=== PATIENT | female | born 1985 | race African-American/Black ===

== ENCOUNTER 2017-03-30 18:11 | Emergency (ER) | payer SELFPAY ==
[~2017-03-30] VITALS: Ht 157.5 cm; Wt 48.3 kg
[~2017-03-30 18:11] MED LIST: BACTRIM,SEPT1 TABLET PO; BENTYL20 MG PO; K-DUR20 MEQ PO; NAPROSYN500 MG PO; NO HOME MEDS; PRILOSEC40 MG PO; PROMETHAZINE HC25 M1 PO; TRAMADOL HCL50 MG PO; ZOFRAN ODT4 MG PO; ZOFRAN4 MG PO
[2017-03-30 19:09] LABS: HEMOGLOBIN 17.2 G/DL (11.9-15.5); MCH 33.1 PG (29.0-34.0); MCHC 35.1 G/DL (30.0-36.0); MCV 94.2 FL (83-99); PLATELET COUNT 443 K/uL (156-360); RBC DIS.WIDTH-CV 12.4 % (11.8-14.6); RBC DIS.WIDTH-SD 43.2 % (39-53); WHITE BLOOD COUNT 16.6 K/uL (4.1-10.2)
[2017-03-30 19:14] LABS: ALBUMIN 5.4 g/dL (3.2-4.8); CHLORIDE 95 mEq/L (99-109); POTASSIUM 3.4 mEq/L (3.7-5.4); SODIUM 136 mEq/L (136-147)
[2017-03-30 19:16] LABS: GLUCOSE 111 mg/dL (70-99); TOTAL PROTEIN 10.3 g/dL (6.4-8.3)
[2017-03-30 19:18] LABS: TOTAL BILIRUBIN 0.6 mg/dL (0.0-1.0)
[2017-03-30 19:20] LABS: ALKALINE PHOSPHATASE 77 IU/L (3-129); CREATININE 1.3 mg/dL (0.6-1.3); GFR ESTIMATE (CALCULATED) > 59 mL/min/
[2017-03-30 19:21] LABS: UREA NITROGEN (BUN) 17 mg/dL (9-23)
[2017-03-30 19:22] LABS: AST (GOT) 34 IU/L (2-34)
[2017-03-30 19:23] LABS: ALT (GPT) 29 IU/L (3-49)
[2017-03-30 19:32] LABS: QUANTITATIVE HCG < 4.0 MIU/ML
[2017-03-30 21:07] LABS: APPEARANCE CLOUDY ((CLEAR)); BILIRUBIN MODERATE; BLOOD NEGATIVE; COLOR AMBER ((YELLOW)); GLUCOSE (STRIP) 50; KETONES 5; LEUKOCYTES SMALL; NITRITE NEGATIVE; PROTEIN (STRIP) >=500; SPECIFIC GRAVITY 1.041 (1.000-1.030)
[2017-03-30 21:38] LABS: ICTOTEST POSITIVE
[2017-03-30 22:01] LABS: EPITHELIAL CELLS 3+ /HPF; HYALINE CASTS TNTC /LPF; MUCUS 2+ /LPF
[2017-03-30 22:02] LABS: RED BLOOD CELLS NONE SEEN /HPF (0-5); WHITE BLOOD CELLS 20-30 /HPF (0-5)
[2017-03-30 22:03] LABS: BACTERIA RARE /HPF; UCUL ADDED? YES
[2017-03-30] MEDS ORDERED: ZOFRAN ODT4 MG PO (22:14)
[2017-03-30 22:30] VITALS: BP 122/76
== END 2017-03-30 22:32 | disposition home or self-care (01) ==
LOC: EME 18:11
DX: R11.2 Nausea with vomiting, unspecified (principal); F17.200 Nicotine dependence, unspecified, uncomplicated
CPT/HCPCS: 80053; 81003; 84702; 85027; 87086; 99281; 99285; J2405; J7030

== ENCOUNTER 2017-09-14 12:41 | Emergency (ER) | payer SELFPAY ==
[~2017-09-14] VITALS: Ht 157.5 cm; Wt 55.7 kg
[2017-09-14 12:50] VITALS: BP 155/97
== END 2017-09-14 13:00 | disposition left against medical advice (07) ==
LOC: EME 12:41
DX: R11.10 Vomiting, unspecified (principal); R53.1 Weakness; Z53.21 Procedure and treatment not carried out due to patient leaving prior to being seen by health care provider
CPT/HCPCS: 80053; 81003; 83690; 84702; 85027